=== PATIENT | male | born 1965 | race Caucasian/White ===

== ENCOUNTER 2019-11-21 21:54 | Emergency (ER) | payer MEDICAID ==
[~2019-11-21] VITALS: Ht 188 cm; Wt 125.0 kg
--- NOTE | 2019-11-21 22:12 | NUR ---
BIB [facility]- 911 called by either pt's father or neighbors larissa hyman pt was crawling on the ground outside of his house yelling. Pt admits to alcohol and 1/2 tab norco ingestion tonight. Pt states "something's wrong" but unable to elaborate on precise symptoms. Pt denies pain, states "just cold". Pt states "I can drink like a mother fucker and I don't get like this." All pt clothing removed, pt placed in gown and positioned for comfort in bed with multiple warm blankets and [place] Paw warmer applied. Continuous heart, oxygen and BP monitors applied, all safety measures observed.
--- NOTE | 2019-11-21 22:22 | NUR ---
Dr. Barrientos at bedside to evaluate pt.
[2019-11-21] MEDS ORDERED: SODIUM CHLORIDE FLUSH 10ML SYR IVF ONE (22:30)
[2019-11-21 22:45] LABS: BASOPHILS # (AUTO) 0.02 x10^3/uL (0-0.1); BASOPHILS % (AUTO) 0 % (0-1); EOSINOPHILS # (AUTO) 0.02 x10^3/uL (0-0.4); EOSINOPHILS % (AUTO) 0 % (1-7); LYMPHOCYTES % (AUTO) 19 % (22-44); MD NO; MEAN CORPUSCULAR HEMOGLOBIN 30.5 pg (27.5-34.5); MEAN CORPUSCULAR HGB CONC 33.9 g/dL (33.2-36.2); MEAN CORPUSCULAR VOLUME 90.1 fL (81-97); MEAN PLATELET VOLUME 7.8 fL (7.4-10.4); MONOCYTES # (AUTO) 0.33 x10^3/uL (0.2-0.8); MONOCYTES % (AUTO) 4 % (2-9); NEUTROPHILS # (AUTO) 6.26 x10^3/uL (1.8-6.8); NEUTROPHILS % (AUTO) 77 % (42-75); PLATELET COUNT 304 x10^3/uL (130-400); RED BLOOD COUNT 4.95 x10^6/uL (4.38-5.82); RED CELL DISTRIBUTION WIDTH 13.6 % (9.4-14.8)
[2019-11-21 22:54] LABS: ALBUMIN 3.7 g/dL (3.4-5.0); ANION GAP 9 mmol/L (5-15); CALCIUM 9.1 mg/dL (8.5-10.1); CHLORIDE 110 mmol/L (98-107)
[2019-11-21 22:57] LABS: ALANINE AMINOTRANSFERASE 38 U/L (12-78); ALKALINE PHOSPHATASE 73 U/L (45-117); BILIRUBIN,TOTAL 0.3 mg/dL (0.2-1.0); CREATININE 1.37 mg/dL (0.7-1.3); TOTAL PROTEIN 7.9 g/dL (6.4-8.2)
[2019-11-21 23:00] LABS: SALICYLATE LEVEL < 1.7 mg/dL (2.8-20.0)
--- NOTE | 2019-11-21 23:08 | NUR ---
Pt back from CT, provided urinal per request. Pt condition unchanged.
--- NOTE | 2019-11-21 23:36 | NUR ---
Pt voided per urinal. DOA sent to lab. Pt sleeping but awakens easily to this RN entering room. Pt appears more alert, A&O x4. Pt denies other needs.
[2019-11-21 23:57] LABS: AMPHETAMINE SCREEN, URINE Negative (Negative); BARBITURATE SCREEN, URINE Negative (Negative); BENZODIAZEPINE SCREEN, URINE Negative (Negative); CANNABINOID SCREEN, URINE Negative (Negative); COCAINE SCREEN, URINE Negative (Negative); METHADONE SCREEN, URINE Negative (Negative); OPIATE SCREEN, URINE Negative (Negative)
--- NOTE | 2019-11-22 00:08 | NUR ---
Pt resting in bed with eyes closed, resp even and unlabored, NADN.
--- NOTE | 2019-11-22 01:01 | NUR ---
Pt continues resting in bed with eyes closed, resp even and unlabored, NADN.
--- NOTE | 2019-11-22 02:11 | NUR ---
Pt continues resting in bed with eyes closed, resp even and unlabored, NADN.
--- NOTE | 2019-11-22 03:04 | NUR ---
Pt continues resting in bed with eyes closed, resp even and unlabored, NADN.
--- NOTE | 2019-11-22 04:24 | NUR ---
Pt continues resting in bed with eyes closed, resp even and unlabored, NADN.
--- NOTE | 2019-11-22 04:43 | NUR ---
Pt awake, A&O x4, able to ambulate with steady gait around unit. Pt provided clothes: shirt, pants, underwear, socks. Pt able to dress self fully.
[2019-11-22 04:44] VITALS: BP 113/76
== END 2019-11-22 04:46 | disposition home or self-care (01) ==
LOC: ED 23:40
DX: F10.129 Alcohol abuse with intoxication, unspecified (principal); G31.2 Degeneration of nervous system due to alcohol; R51 Headache; Y90.0 Blood alcohol level of less than 20 mg/100 ml
CPT/HCPCS: 36415; 70450; 80053; 80307; 85025; 99284